=== PATIENT | male | born 1980 | race Two or more races ===

== ENCOUNTER 2023-07-14 23:22 | Emergency (ER) | payer SELFPAY ==
[~2023-07-14] VITALS: Ht 167.6 cm; Wt 70.0 kg
[2023-07-14 23:33] VITALS: BP 133/96; PULSE 84; RESP 20; TEMP 98.2; O2SAT 96
== END 2023-07-15 01:39 | disposition home or self-care (01) ==
LOC: ER 23:28
DX: R04.0 Epistaxis (principal); I10 Essential (primary) hypertension
CPT/HCPCS: 99283